=== PATIENT | male | born 2000 | race African-American/Black ===

== ENCOUNTER 2022-03-17 16:59 | Emergency (ER) | payer OTHER ==
[2022-03-17 17:07] VITALS: BP 114/73; PULSE 66; RESP 19; TEMP 97.8; BMI 22.5
== END 2022-03-17 18:09 | disposition home or self-care (01) ==
LOC: JERFT 16:59
DX: H01.8 Other specified inflammations of eyelid (principal)
CPT/HCPCS: 99281-25